=== PATIENT | female | born 1945 | race Caucasian/White ===

== ENCOUNTER → 2017-02-20 | Outpatient (CLI) | payer OTHER, MEDICARE ==
[~2017-02-20] VITALS: Ht 162.6 cm; Wt 59.0 kg
[~2017-02-20] MED LIST: ADVAIR HFA120 INHALA IH; ADVIL200 MG PO; ATROVENT H200 INHALA IH; COLACE100 MG PO; EYE DROPS15 M1 BOTH EYES; LEVEMIR FL100 UNIT/1 SC; LEVOFLOXACIN750 MG PO; LISINOPRIL20 MG PO; METFORMIN HCL1000 MG PO; MOTRIN IB200 MG PO; NICOTINE PATCH1 EAC2 TD; OXYCODONE HCL5 MG PO; PERCOCET 5/31 TABLET PO; PREDNISONE20 MG PO; PROAIR HFA8.5 GM IH; SIMVASTATIN10 MG PO; SPIRIVA RESPIMAT4 GM IH; TYLENOL EXTRA500 MG PO; ULTRAM50 MG PO
[2017-02-20 09:05] LABS: POINT-OF-CARE METER ID UU14174212
[2017-02-20 09:08] LABS: HEMATOCRIT 41.5 % (36.0-46.0); MCH 31.6 PG (29.0-34.0); MCHC 32.5 G/DL (30.0-36.0); MCV 97.2 FL (83-99); MEAN PLAT.VOLUME 8.8 uM^3 (9.5-12.4); PLATELET COUNT 315 K/uL (156-360); RBC DIS.WIDTH-CV 13.1 % (11.8-14.6); RBC DIS.WIDTH-SD 46.8 % (39-53); RED BLOOD COUNT 4.27 M/uL (3.80-5.20); WHITE BLOOD COUNT 5.3 K/uL (4.1-10.2)
== END | disposition home or self-care (01) ==
LOC: OPR 08:30 → EDSTATUS 09:00
PROVIDERS: Obstetrics & Gynecology Gynecologic Oncology
DX: C78.01 Secondary malignant neoplasm of right lung (principal); J43.9 Emphysema, unspecified; E11.9 Type 2 diabetes mellitus without complications; I10 Essential (primary) hypertension; E78.00 Pure hypercholesterolemia, unspecified; I25.10 Atherosclerotic heart disease of native coronary artery without angina pectoris; Z85.42 Personal history of malignant neoplasm of other parts of uterus; Z87.891 Personal history of nicotine dependence; Z80.0 Family history of malignant neoplasm of digestive organs
CPT/HCPCS: 71010; 77012; 82948; 85027; 88305; 88341 TC; 88342 TC; J3010